=== PATIENT | female | born 1970 | race Caucasian/White ===

== ENCOUNTER → 2017-11-03 | Outpatient (CLI) | payer OTHER ==
[~2017-11-03] MED LIST: ALORA1 EAC2 TRANSDERM; FLEXERIL PO; NABUMETONE 750750 M1 PO; NAPROSYN500 MG PO; REMERON15 MG PO; VALIUM2 MG PO; VALIUM5 MG PO; VENLAFAXIN37.5 MG/1 PO; WELLBUTRIN SR150 MG PO; ZANAFLEX4 M1 PO; ZANAFLEX4 MG; ZANAFLEX4 MG PO
--- NOTE | 2017-11-05 09:33 | PAINCON ---
[facility] [address] [place] [address] PAIN MANAGEMENT CONSULTATION Name: CHRISTIANSONDEDE Room: [facility]#: [id number] Admission: 11/03/17 Attend Phys: Abbey Yun Discharge: Date of : 70 Report #: [id number] THIS REPORT FOR: //name// CC: Vaishali Samuels HISTORY OF PRESENT ILLNESS: The patient is a pleasant 46-year-old female. She has been treated for cervical spondylosis and cervical radiculopathy, myofascial pain requiring high risk medication management for some time. Last seen in pain clinic on 07/21/2017. She returns to pain clinic today. We again had a prolonged visit. The patient is frustrated. She has been unable to quit smoking despite starting Wellbutrin. She did actually discontinue that agent. She is having increasing tingling and paresthesia in the left arm. Had a recent sinus infection, unfortunately she also had a slip and fall on the stairs, which exacerbated pain in the right shoulder as she tried to reach up and grabbed the banister when she slipped. Ongoing cervical radicular symptoms with paresthesia going into the left arm and hand. She has continued with baseline medication including Valium 2 mg t.i.d., tizanidine for spasm and Remeron 15 mg at bedtime. She rates her pain as 6 on VAS at present. PHYSICAL EXAMINATION: Shows 5 feet tall, 135-pound female. BMI is 26.5 kilograms per meter squared. Blood pressure 127/73, pulse 89, respirations 16. Cervical range of motion is limited. Grossly positive Lhermitte with pain radiating to the left arm and hand. Right shoulder has pain with active range of motion, though no pain with passive range of motion, I believe she suffered mostly myofascial type strain in the fall. No osseous pathology suspected. We reviewed her prior diagnostic studies, 06/15/2016, I had ordered an MRA of her head, which showed no irregularity of the vascular system. MRI of the cervical spine from 08/2015 had noted mild central stenosis at C5-C6, canal limited to about 9 mm with right paracentral disk and annular tear at C6-C7. ASSESSMENT: Symptomatic cervical radiculopathy, acute exacerbation of radicular symptoms, acute exacerbation of right upper extremity muscle injury. RECOMMENDATIONS: 1. Discussion with the patient today about therapeutic option. Again, counseled regarding smoking cessation. 2. We will renew Remeron at bedtime, Zanaflex 4 mg t.i.d. for spasm and Valium t.i.d. for anxiety and spasm. 3. We will seek authorization for cervical epidural injection under fluoroscopy with exacerbation of left cervical radicular symptoms and HNP at C6-C7 corresponding with left C7 radicular symptoms. 4. We will plan on moving forward with cervical epidural injection under fluoroscopy at next visit, again she has had good relief with prior cervical epidural injections for radicular symptoms, [place] [address] PAIN MANAGEMENT CONSULTATION Name: DEDE CHRISTIANSON [id number] Admission: 11/03/17 Attend Phys: Abbey Yun Discharge: Date of : 70 Report #: [id number] ago, 10/2016. Prior she had had cervical epidural injection in 05/2016 and 09/2015. <ELECTRONICALLY SIGNED> By: Amanuel Samuels DO 11/05/17 0933 1241 [id number] Samuels DO /nt
== END ==
LOC: M.PC 01:28
DX: S49.91XA Unspecified injury of right shoulder and upper arm, initial encounter (principal); M47.892 Other spondylosis, cervical region; M54.12 Radiculopathy, cervical region; M79.1 Myalgia; Z79.899 Other long term (current) drug therapy; X58.XXXA Exposure to other specified factors, initial encounter; Y93.89 Activity, other specified; Y92.89 Other specified places as the place of occurrence of the external cause; Y99.8 Other external cause status

== ENCOUNTER → 2017-12-01 | Outpatient (CLI) | payer OTHER ==
--- NOTE | 2017-12-08 07:32 | PAINCON ---
[address] [address] PAIN MANAGEMENT CONSULTATION Name: CHRISTIANSONDEDE [id number] Admission: 12/01/17 Attend Phys: Abbey Yun Discharge: Date of : 70 Report #: [id number] THIS REPORT FOR: //name// CC: Vaishali Samuels DATE OF SERVICE: 12/01/2017 HISTORY OF PRESENT ILLNESS: The patient is a 47-year-old female typically treated for cervical spondylosis, myofascial pain. Last visit, had exacerbation of cervical radiculopathy, sought authorization for epidural injection under fluoroscopy today. Returns to pain clinic today for said injection. She is having some ongoing right shoulder pain. Concern for osteopenia by history. She continues to smoke. She is having pain in the left thigh, which she thought was related to osteoporosis. Physical exam does show slight decreased left hip flexion, lower extremity extension strength. Modestly positive straight leg raise on the left. Given history of cervical spondylosis and cervical radiculopathy, I suspect she simply has degenerative changes in the lumbar spine resulting in some lumbar radicular symptoms. Regarding osteoporosis, the patient has a family history of osteoporosis. She has continued to smoke despite counseling. She is fairly thin. She is postmenopausal. She does have multiple risk factors for osteoporosis. We stressed today following up with her general assignment reporter physician for consideration for; 1. Female hormone replacements. 2. Absolutely mandate smoking cessation. 3. Do continue with Viactiv [id number] calcium and vitamin D supplements. 4. We strongly recommend physical therapy, range of motion and some stress to help with osteoporosis prevention. She had prior participated in [employer] classes and I strongly recommend she return with these. PHYSICAL EXAMINATION: GENERAL: Today further notes pleasant 47-year-old female, BMI 27.1 kilograms per meter squared. VITAL SIGNS: Blood pressure 120/70, pulse 98, respirations 16. MUSCULOSKELETAL: Cervical range of motion is limited. Positive Lhermitte's. Decreased right shoulder and arm strength. Tenderness over the superior left cervical facets. ASSESSMENT: Symptomatic cervical radiculopathy by clinical exam and history. RECOMMENDATION: 1. Cervical epidural injection under fluoroscopy. 2. Right shoulder degenerative joint disease. Continue range of motion and activity [place] [address] PAIN MANAGEMENT CONSULTATION Name: SAMMYDEDE Rogel [facility] [id number] Admission: 12/01/17 Attend Phys: Abbey Yun Discharge: Date of : 70 Report #: [id number] 3. Concern for osteoporosis. RECOMMENDATIONS: Smoking cessation. Continue Viactiv. Talk to her general assignment reporter physician regarding bone density, female hormone replacements and possible initiation of medications for osteopenia/osteoporosis. Strongly encouraged resumption of [employer] classes. PROCEDURE: Cervical epidural steroid injection under fluoroscopy. PROCEDURE NOTE: After written and informed consent was obtained including risk of dural puncture, spinal cord trauma, paralysis and increased pain, the patient was taken to the fluoroscopy suite and placed in the prone position, with appropriate abdominal bolstering, neck was flexed, palms under the thighs. Skin was prepped with ChloraPrep. Sterile draping was applied. Skin wheal with 1% Xylocaine was raised. A 22-gauge 3-1/2 inch epidural Tuohy needle was placed via a midline approach at the C7-T1 interspace, advanced under biplanar fluoroscopy using continuous loss of resistance. With appropriate loss of resistance at the expected depth on lateral view, the glass loss of resistance syringe was disconnected. A low volume extension tubing was connected to the needle and a 5 mL syringe. Negative aspiration for cerebrospinal fluid or blood was noted. A 1 mL of Omnipaque was injected which showed spread within the epidural space on biplanar fluoroscopy. This was followed with 80 mg of triamcinolone plus 1 mL of 1.5% preservative Xylocaine. Needle was withdrawn to the interspinous ligament, 0.5 mL of Xylocaine was used to flush the needle. The needle was then completely withdrawn. The area was cleansed. Band-Aid was applied. The patient was allowed to move off the procedure table and ambulated to the recovery room, monitored for an appropriate period of time, discharged in good and stable condition. <ELECTRONICALLY SIGNED> By: Amanuel Samuels DO 12/08/17 0732 1230 [id number] Samuels DO /nt
== END | disposition home or self-care (01) ==
LOC: M.PC 01:29
DX: M54.12 Radiculopathy, cervical region (principal); M19.011 Primary osteoarthritis, right shoulder; F17.210 Nicotine dependence, cigarettes, uncomplicated; Z82.62 Family history of osteoporosis

== ENCOUNTER → 2018-06-14 | Outpatient (CLI) | payer OTHER ==
--- NOTE | 2018-08-01 10:00 | PAINCON ---
[address] [address] PAIN MANAGEMENT CONSULTATION Name: SAMMYDEDE Room: [facility]#: [id number] Admission: 06/14/18 Attend Phys: Haider Cox MD Discharge: Date of : 70 Report #: [id number] THIS REPORT FOR: //name// CC: Vaishali Cox DATE OF SERVICE: 06/14/2018 CHIEF COMPLAINT: Neck pain down into the left arm. HISTORY OF PRESENT ILLNESS: The patient is a 47-year-old female who has been seen in the pain clinic and followed by Dr. Amanuel Samuels. She has undergone cervical epidural steroid injections in the past and gleaned benefits from these. She returns today indicating that her pain has increased. Rates it as a 7/10. She has a history of cervical spondylosis and myofascial pain. She has some concerns, history of osteopenia. She continues to smoke. She has had some pain in her left thigh, which is thought to be secondary to osteoporosis. She probably has some degenerative changes in the lumbar spine resulting in some radicular symptoms. She would like to proceed with a cervical epidural steroid injection given that these have been beneficial in the past. She notes that her left arm seems to fall asleep and radiates with numbness and tingling down into her fingers. Notes some weakness in this area. Has had pain over the past 3 years. ALLERGIES: PHENYLPROPANOLAMINE AND BROMPHENIRAMINE. MEDICATIONS: Valium 2 tablets of 2 mg t.i.d., Remeron 50 mg at bedtime, Zanaflex 4 mg t.i.d. and estrogen patch twice weekly. PAST MEDICAL HISTORY: Generally good health. PAST SURGICAL HISTORY: in 2004, breast biopsies, right breast, neck in 2002, breast augmentation with tummy tuck and ectopic in 1993. SOCIAL HISTORY: Works as a gas utility worker. REVIEW OF SYSTEMS: Generally good health, wears glasses, sore throat, changes and shortness of breath. LABORATORY DATA: MRI of the cervical spine dated on 09/03/2015. 1. C3, C4 central canal disk prominent anterior thecal sac. No significant central canal stenosis or neural foraminal narrowing. 2. C4, C5 no central canal spinal stenosis or neural foraminal narrowing. 3. C5-C6 disk osteophyte complex with uncinate and facet hypertrophy. There is a mild central canal stenosis. The central canal AP diameter is 9 mm. Minimal indentation of the anterior spinal cord at this level. [place] [address] PAIN MANAGEMENT CONSULTATION Name: DEDE CHRISTIANSON Room: [facility]#: [id number] Admission: 06/14/18 Attend Phys: Haider Cox MD Discharge: Date of : 70 Report #: [id number] right and moderate left neural foraminal narrowing at this level. Protrusion and anterior annular tear. This indents the anterior thecal sac. No significant central canal stenosis. Minimal neural foraminal narrowing at this level. 4. C7-T1. No central canal stenosis or neural foraminal narrowing. PAIN CLINIC ASSESSMENT: 1. History of osteoarthritis. The patient is not be treated for osteoarthritis. 2. Height 5 feet 0 inches, weight 131 pounds, BMI 25. 3. Vital signs: Blood pressure 132/80, heart rate 80, respiratory rate 16, room air saturation 98% and temperature 97.8. 4. Pain intensity 10. 5. Fall risk. The patient has not fallen in the last 3 months. 6. Blood thinner. The patient is on blood thinning medication. 7. Hypertension. The patient is not be treated for hypertension. 8. Risk assessment tool. 9. Functional assessment tool. 10. Recreational drug use. The patient denies use of recreational drugs. 11. Tobacco: The patient does smoke. 12. Alcohol. The patient denies frequent use of alcoholic beverages. PHYSICAL EXAMINATION: GENERAL: The patient is a well-developed, well-nourished white female. Appears her stated age. She is alert and oriented x 3. Affect is appropriate. Speech is fluent. HEENT: Normocephalic, atraumatic. Extraocular muscles intact. Sclerae nonicteric. Mucous membranes are moist. NECK: Without adenopathy or JVD. HEART: Regular rate. S1, S2. LUNGS: Clear to auscultation. ABDOMEN: Nontender. EXTREMITIES: Upper extremity muscle strength is judged to be 5/5 for the right upper extremity. The patient has pain and discomfort which is radiating down the right side of her hand involving her thumb, middle and index finger. Muscle strength is judged to be 5/5 for the major muscle groups in the lower extremity. There is no neurological complaints at this juncture. IMPRESSION: 1. Cervical radiculopathy involving the right arm. 2. Degenerative joint disease. 3. Use of tobacco. RECOMMENDATIONS: We discussed treatment options with the patient. Risks and benefits of an epidural steroid injection were again reviewed. Possible complications were discussed. They include but are not limited to infection, [place] [address] PAIN MANAGEMENT CONSULTATION Name: DEDE CHRISTIANSON Room: [facility]#: [id number] Admission: 06/14/18 Attend Phys: Haider Cox MD Discharge: Date of : 70 Report #: [id number] increased muscle soreness, headache, worsening of pain, no improvement in pain and the patient elects to proceed. PROCEDURE NOTE: The patient was taken to the procedure area. She was a help getting on the examination table. Her back was sterilely prepped with a Betadine solution. Fluoroscopy using anterior, posterior as well as lateral viewing were used. The C7/T1 interspace was sterilely prepped with a Betadine solution in that area. A 17-gauge Tuohy with loss of resistance technique was used to gain access to the epidural space using a right central approach. A total of 120 mg triamcinolone was injected. The patient tolerated the procedure well. There were no complications. She was taken to the recovery room. There was no bleeding. She remained for an appropriate amount of time. She will follow up in the near future. <ELECTRONICALLY SIGNED> By: Haider Cox MD 08/01/18 1000 [id number]. Kurt Cox MD /nt
== END | disposition home or self-care (01) ==
LOC: M.PC 04:24
DX: M54.12 Radiculopathy, cervical region (principal); G89.29 Other chronic pain; M19.90 Unspecified osteoarthritis, unspecified site; F17.210 Nicotine dependence, cigarettes, uncomplicated; Z98.890 Other specified postprocedural states; Z88.8 Allergy status to other drugs, medicaments and biological substances

== ENCOUNTER → 2019-01-05 | Outpatient (CLI) | payer OTHER ==
--- NOTE | ~2019-01-05 | PAINCON ---
[address] [address] PAIN MANAGEMENT CONSULTATION Name: SAMMYDEDE M Room: [facility].#: [id number] Admission: 01/05/19 Attend Phys: Haider Cox MD Discharge: Date of : 70 Report #: [id number] THIS REPORT FOR: //name// CC: Vaishali Cox DATE OF SERVICE: 01/05/2019 CHIEF COMPLAINT: Return of neck pain with numbness, tingling and weakness in the left arm. HISTORY: The patient is a 47-year-old female who has been seen in the Pain Clinic because of cervical radiculopathy. She has undergone epidural steroid injections in the cervical area to help control her pain. This has been beneficial. She returns today with the complaint of increased pain with activity involving her neck. She is experiencing pain that is radiating into her left arm. Also, has some pain in the low back area as well as pain above her knees. Sometimes feels as though her left knees might give out. Rates her pain as a 7/10. She feels that the Valium and tizanidine are helpful. Does used heat. She has a history of cervical spondylosis and some myofascial pain. She is concerned about osteopenia. She does continue to smoke. She has found the cervical injections in the past were beneficial and has returned today with a desire to undergo a cervical epidural steroid injection. ALLERGIES: PHENYLPROPANOLAMINE AND BROMPHENIRAMINE. CURRENT MEDICATIONS: Valium 2 tablets t.i.d., Remeron 50 mg at bedtime, Zanaflex 4 mg t.i.d., estrogen patch twice weekly. PAIN CLINIC ASSESSMENT/PQRS: 1. The patient does have some arthritic changes in her upper neck area. She is not being treated for rheumatoid arthritis. 2. Height 5 feet 0 inches, weight 127 pounds, BMI is 24.9. 3. Vital Signs: Blood pressure 122/64, heart rate 76, respiratory rate 16, room air saturation 96%, temperature 98.1. 4. Pain intensity, 04/26. 5. Fall history: The patient has not fallen in the last 3 months. 6. Blood thinner. The patient is not on a blood thinning medication. 7. Hypertension. The patient is not being treated for hypertension. 8. Risk assessment tool, low for opioid use. 9. Functional assessment tool. 10. Recreational drug use. The patient denies use of recreational drugs. 11. Tobacco: The patient does smoke and has been counseled regarding the benefits of smoking cessation. 12. Alcohol: The patient denies [place] [address] PAIN MANAGEMENT CONSULTATION Name: DEDE CHRISTIANSON Room: [facility]#: [id number] Admission: 01/05/19 Attend Phys: Haider Cox MD Discharge: Date of : 70 Report #: [id number] PHYSICAL EXAMINATION: GENERAL: The patient is a well-developed, well-nourished white female. Appears her stated age. She is alert and oriented x 3. Affect is appropriate. Speech is slow. HEENT: Normocephalic, atraumatic. Extraocular eye muscles intact. Sclerae nonicteric. Mucous membranes are moist. The patient notes some pain and discomfort in the left arm. This pain is radiating down into the left arm to the area of her fingers with some weakness perceived. HEART: Regular rate. S1, S2. LUNGS: Clear to auscultation without rhonchi or rales. ABDOMEN: Nontender. EXTREMITIES: The patient does have muscle strength on the right, judged to be 5/5 and 4+/5 on the left. The patient complains of some pain in the low back area with pain down into her legs. Muscle strength appears to be 5-/5 for the major muscle groups in the lower extremity. IMPRESSION: 1. Cervical radiculopathy involving the left and right arm more problematic with the left today. 2. Degenerative joint disease. 3. Probable osteoarthritis. 4. Chronic use of tobacco. RECOMMENDATIONS: We discussed treatment options with the patient. Risks and benefits of an epidural steroid injection were again reviewed. They include but are not limited to infection, worsening pain, no improvement in pain, nerve damage, and increased muscle soreness. The patient elects to proceed. PROCEDURE NOTE: The patient was taken to the procedure area. She was assisted in getting on the examination table. She was placed in the prone position. A pillow was placed under her shoulders to bolster and improve positioning. Her neck was sterilely prepped with a Betadine solution, which was allowed to dry. Anterior, posterior as well as lateral viewing with fluoroscopy were undertaken. The midline area was sterilely prepped at the C7/T1 interspace. A 17-gauge Tuohy with loss of resistance technique was used to gain access to the epidural space after this area had been numbed using a 25-gauge needle and 0.25% bupivacaine. Aspiration was negative. Total of 120 mg triamcinolone was injected. The patient tolerated the procedure well. Total of 13 seconds fluoroscopy time was used. The patient's pain was 6/10 at the time of discharge. She will follow up in the future as needed. The patient was given a script for Valium 2 mg 1 p.o. t.i.d., 90 tablets, Wellbutrin-SR 150 mg b.i.d. and has been given a total of 30. The patient will try the Wellbutrin to see whether or not this is helpful with her decreasing her tobacco use. She also has been given a script [place] [address] PAIN MANAGEMENT CONSULTATION Name: DEDE CHRISTIANSON Juan F Room: [facility]#: [id number] Admission: 01/05/19 Attend Phys: Haider Cox MD Discharge: Date of : 70 Report #: [id number] We would like to thank you for letting us participate in her care. We hope she continues to improve. By: [id number]. Kurt Cox MD /gal
== END | disposition home or self-care (01) ==
LOC: M.PC 04:47
DX: M54.12 Radiculopathy, cervical region (principal); G89.29 Other chronic pain; M19.90 Unspecified osteoarthritis, unspecified site; F17.290 Nicotine dependence, other tobacco product, uncomplicated; Z88.8 Allergy status to other drugs, medicaments and biological substances; Z79.899 Other long term (current) drug therapy; Z98.890 Other specified postprocedural states

== ENCOUNTER → 2019-12-14 | Outpatient (CLI) | payer OTHER ==
[~2019-12-14] MED LIST changes: +REMERON 15 MG PO; +ZOLOFT25 MG PO
--- NOTE | ~2019-12-14 | PAINCON ---
[address] [address] PAIN MANAGEMENT CONSULTATION Name: DEDE CHRISTIANSON Room: [facility]#: [id number] Admission: 12/14/19 Attend Phys: Haider Cox MD Discharge: Date of : 70 Report #: [id number] THIS REPORT FOR: //name// cc: Bee Hernandez Linda J. DO THIS REPORT FOR: //name// CC: Vaishali Mccann CHIEF COMPLAINT: Neck pain. HISTORY OF PRESENT ILLNESS: The patient is a 49-year-old female, who has returned to the pain clinic. As you may recall, she has had problems with her neck. She is experiencing neck pain with pain radiating down into her left arm. There is numbness and tingling down into her left arm. She underwent a cervical epidural steroid injection in 12/2018. She has had some financial difficulty. She has not been able to return for a cervical injection until this time. She did have radiofrequency lesioning a few years ago. She found that helpful. She would like to proceed with an epidural steroid injection as well as have renewal of her pain medications. ALLERGIES: PHENYLPROPANOLAMINE AND BROMPHENIRAMINE. CURRENT MEDICATIONS: Valium 2 mg t.i.d. for anxiety, estradiol transdermal twice weekly, Zoloft 25 mg, tizanidine 4 mg t.i.d. and Remeron 15 mg at bedtime. PAIN CLINIC ASSESSMENT/PQRS: 1. The patient does have some arthritic changes in her upper neck. She is not being treated for rheumatoid arthritis. 2. Height 5 feet 0 inch, weight 128 pounds, BMI is 25.2. 3. Vital signs: Blood pressure 116/77, heart rate 73, respiratory rate 18, room air saturation 97%, max temperature 98.1. 4. Pain intensity 9/10 with numbness and tingling radiating down into the left arm. 5. Fall history: The patient has not fallen in the last 3 months. 6. Blood thinner. The patient is not on a blood-thinning medication. 7. Hypertension. The patient is not being treated for hypertension. 8. Risk assessment tool: Low for opioid use. 9. Functional assessment tool: Reviewed. 10. Recreational drug use: The patient denies. 11. Tobacco: The patient does smoke and has been counseled regarding smoking cessation. 12. Alcohol. The patient denies frequent [place] [address] PAIN MANAGEMENT CONSULTATION Name: DEDE CHRISTIANSON Room: [facility]#: [id number] Admission: 12/14/19 Attend Phys: Haider Cox MD Discharge: Date of : 70 Report #: [id number] PHYSICAL EXAMINATION: GENERAL: The patient is a well-developed, well-nourished white female. Appears her stated age. She is alert and oriented x 3. Her affect is appropriate. Speech is somewhat slow. HEENT: Normocephalic, atraumatic. Extraocular eye muscles are intact. Sclerae are nonicteric. Mucous membranes are moist. NECK: The patient has pain and discomfort with pain radiating down to the left arm into the forearm with numbness and tingling down into her fingers with weakness. HEART: Regular rate. S1, S2. LUNGS: Clear to auscultation. ABDOMEN: Nontender. EXTREMITIES: The patient's upper muscle strength judged to be 5/5 for the major muscle groups on the right and 4+/5 on the left. The patient also complains of some low back pain with pain down into the lower extremities and rates it 5/5 for the major muscle groups in the lower extremities. IMPRESSION: 1. Cervical radiculopathy involving the right and left arm, more problematic on the left with numbness and tingling on the left. 2. Degenerative joint disease. 3. Probable osteoarthritis. 4. Chronic tobacco use. RECOMMENDATIONS: We discussed treatment options with the patient. Risks and benefits of a cervical epidural steroid injection were discussed. Possible complications of the procedure, which could include but are not limited to infection, worsening of pain, no improvement in pain, nerve damage were discussed and the patient elects to proceed. PROCEDURE NOTE: The patient was taken to the procedure area. She was then assisted in getting on the examination table. A pillow was placed under shoulders for bolstering to improve positioning. Fluoroscopy using anterior, posterior as well as lateral viewing were implemented. A 25-gauge needle was then advanced at the C7-T1 interspace. This area was anesthetized. A 17-gauge Tuohy with loss of resistance technique at the C7-T1 interspace was then used to gain access to the epidural space. There was no CSF, heme or paresthesias. Total of 120 mg of triamcinolone was injected. The patient tolerated the procedure well. There were no complications. She remained in the Pain Clinic for an appropriate amount of time. She will follow up in the future as needed. A script for Remeron 15 mg 1 p.o. at bedtime has been provided. The patient will also continue with Valium 2 mg 1 p.o. t.i.d. for anxiety and a script for Zanaflex for muscle relaxant 4 mg 1 p.o. t.i.d. [place] [address] PAIN MANAGEMENT CONSULTATION Name: DEDE CHRISTIANSON Room: [facility]#: [id number] Admission: 12/14/19 Attend Phys: Haider Cox MD Discharge: Date of : 70 Report #: [id number] We would like to thank you for letting us participate in her care. We hope she continues to improve. By: [id number]. Kurt Cox MD /nt
== END | disposition home or self-care (01) ==
LOC: M.PC 08:50
DX: M54.12 Radiculopathy, cervical region (principal); G89.29 Other chronic pain; Z98.890 Other specified postprocedural states; Z88.8 Allergy status to other drugs, medicaments and biological substances; Z79.899 Other long term (current) drug therapy

== ENCOUNTER → 2020-07-05 | Outpatient (CLI) | payer OTHER | LOC: M.MRI 06-27 11:33 | PROVIDERS: ATTEND Family Medicine | DX: M47.812 Spondylosis without myelopathy or radiculopathy, cervical region (principal); M51.34 Other intervertebral disc degeneration, thoracic region; M48.02 Spinal stenosis, cervical region ==

== ENCOUNTER → 2020-10-25 | Outpatient (CLI) | payer OTHER | LOC: M.RAD 08:09 | DX: M50.122 Cervical disc disorder at C5-C6 level with radiculopathy (principal); M47.22 Other spondylosis with radiculopathy, cervical region ==